=== PATIENT | female | born 1985 | race Caucasian/White ===

== ENCOUNTER 2018-04-24 10:51 | Outpatient (CLI) | payer MEDICAID | END 2018-04-24 13:00 | disposition home or self-care (01) | LOC: OBT 10:51 → L-D 10:53 → OBT 13:00 | DX: O26.613 Liver and biliary tract disorders in pregnancy, third trimester (principal); K83.1 Obstruction of bile duct; O36.8330 Maternal care for abnormalities of the fetal heart rate or rhythm, third trimester, not applicable or unspecified; Z3A.28 28 weeks gestation of pregnancy | CPT/HCPCS: 76818 ==

== ENCOUNTER 2018-04-27 11:29 | Outpatient (CLI) | payer MEDICAID | END 2018-04-27 13:30 | disposition home or self-care (01) | LOC: OBT 11:29 → L-D 11:29 → OBT 13:30 | DX: O36.8330 Maternal care for abnormalities of the fetal heart rate or rhythm, third trimester, not applicable or unspecified (principal); Z3A.28 28 weeks gestation of pregnancy | CPT/HCPCS: 76818 ==

== ENCOUNTER 2018-05-17 19:10 | Outpatient (CLI) | payer MEDICAID | END 2018-05-17 23:20 | disposition home or self-care (01) | LOC: OBT 19:10 → L-D 19:11 → OBT 23:20 | DX: O36.8330 Maternal care for abnormalities of the fetal heart rate or rhythm, third trimester, not applicable or unspecified (principal); Z3A.31 31 weeks gestation of pregnancy | CPT/HCPCS: 76815 ==

== ENCOUNTER 2018-06-07 16:02 | Outpatient (CLI) | payer MEDICAID | END 2018-06-07 17:45 | disposition home or self-care (01) | LOC: OBT 16:02 → L-D 16:03 → OBT 17:45 | DX: O36.8330 Maternal care for abnormalities of the fetal heart rate or rhythm, third trimester, not applicable or unspecified (principal); Z3A.34 34 weeks gestation of pregnancy | CPT/HCPCS: 76818 ==

== ENCOUNTER 2018-06-15 17:07 | Outpatient (CLI) | payer MEDICAID | END 2018-06-15 18:45 | disposition home or self-care (01) | LOC: OBT 17:07 → L-D 17:08 → OBT 18:45 | DX: O36.8330 Maternal care for abnormalities of the fetal heart rate or rhythm, third trimester, not applicable or unspecified (principal); O76 Abnormality in fetal heart rate and rhythm complicating labor and delivery; Z3A.35 35 weeks gestation of pregnancy | CPT/HCPCS: 76818 ==

== ENCOUNTER 2018-06-28 06:27 | Inpatient (IN) | payer MEDICAID ==
[2018-06-28] MEDS: LACTATED RINGER'S 1,000 ML IV ×2 (07:44→17:28)
[2018-06-28] MEDS ORDERED: CARBOPROST 250 MCG INJ IM (08:00)
[2018-06-28] MEDS ORDERED: AMPICILLIN 2 GM/NS (PMX) 100 ML IV (08:00)
[2018-06-28] MEDS ORDERED: METHYLERGONOVINE 0.2 MG INJ IM (08:00)
[2018-06-28] MEDS ORDERED: OXYTOCIN 30 UNITS/LR 500 ML IV (08:00)
[2018-06-28] MEDS ORDERED: IBUPROFEN 600 MG TAB PO (08:00)
[2018-06-28] MEDS ORDERED: MISOPROSTOL 200 MCG TAB PR (08:00)
[2018-06-28 09:04] LABS: ADD MAN DIFF? NO
[2018-06-28 09:09] LABS: BASOPHILS % 0.4 % (0.0-2.0); EOSINOPHILS # 0.1 10^3/ul (0.0-0.5); EOSINOPHILS % 0.7 % (0.0-7.0); HEMATOCRIT 33.1 % (37.0-47.0); LYMPHOCYTES # 1.4 10^3/ul (0.8-2.9); MEAN CORPUSCULAR HGB CONC 33.2 g/dl (32.0-37.0); MEAN CORPUSCULAR VOLUME 90.2 fl (82.0-101.0); MEAN PLATELET VOLUME 11.8 fl (7.4-10.4); MONOCYTE # 0.4 10^3/ul (0.3-0.9); MONOCYTES % 5.7 % (0.0-11.0); NEUTROPHIL # 5.6 10^3/ul (1.6-7.5); NEUTROPHILS % 73.7 % (39.0-77.0); PLATELET COUNT 203 10^3/UL (140-415); RED BLOOD COUNT 3.67 10^6/ul (4.20-5.40); RED CELL DISTRIBUTION WIDTH 12.4 % (11.5-14.5)
[2018-06-28 09:09] LABS: WHITE BLOOD COUNT 7.5 10^3/ul (4.8-10.8)
[2018-06-28 09:33] LABS: INR 0.89; PROTIME 12.1 Sec (11.9-14.9); PT RATIO 0.9
[2018-06-28 09:34] LABS: PARTIAL THROMBOPLASTIN TIME 29.1 Sec (23.0-35.0)
[2018-06-28] MEDS ORDERED: AMPICILLIN 1 GM/NS (PMX) 50 ML IV (12:00)
[2018-06-28 17:13] LABS: RAPID PLASMA REAGIN NONREACTIVE (NR)
[2018-06-28] MEDS: BUTORPHANOL 2 MG INJ IV (23:59)
[2018-06-29] MEDS: LACTATED RINGER'S 1,000 ML IV (01:54)
[2018-06-29] MEDS: ONDANSETRON 4 MG INJ IV (08:23)
[2018-06-29] MEDS: OXYTOCIN 30 UNITS/LR 500 ML IV ×2 (10:05→10:57)
[2018-06-29] MEDS: MINERAL OIL LIGHT 10 ML VIAL TOP (10:20)
[2018-06-29] MEDS: LIDOCAINE 1% (MPF) 30 ML INJ INJ (10:52)
[2018-06-29] MEDS ORDERED: DEXTROSE 5%-LR 1,000 ML IV (11:09)
[2018-06-29] MEDS ORDERED: OXYTOCIN 30 UNITS/LR 500 ML IV (11:30)
[2018-06-29] MEDS ORDERED: DIPHENHYDRAMINE 50 MG INJ IV (11:30)
[2018-06-29] MEDS ORDERED: SENNA/DOCUSATE NA (8.6MG/50MG) TAB PO (11:30)
[2018-06-29] MEDS ORDERED: ZOLPIDEM 5 MG TAB PO (11:30)
[2018-06-29] MEDS ORDERED: ONDANSETRON 4 MG INJ IV (11:30)
[2018-06-29] MEDS ORDERED: ACETAMINOPHEN 325 MG TAB PO (11:30)
[2018-06-29] MEDS ORDERED: CARBOPROST 250 MCG INJ IM (11:30)
[2018-06-29] MEDS ORDERED: METHYLERGONOVINE 0.2 MG INJ IM (11:30)
[2018-06-29] MEDS ORDERED: DIBUCAINE 1% 30 GM OINT TOP (11:30)
[2018-06-29] MEDS ORDERED: MISOPROSTOL 200 MCG TAB PR (11:30)
[2018-06-29] MEDS ORDERED: OXYCODONE/ASPIRIN (4.88/325) TAB PO (11:30)
[2018-06-29] MEDS: OXYTOCIN 30 UNITS/LR 500 ML IVPB (13:10)
[2018-06-29] MEDS: LANOLIN HPA 1 PKT TOP (13:37)
[2018-06-29] MEDS: IBUPROFEN 600 MG TAB PO ×2 (13:37→18:23)
[2018-06-29] MEDS: BENZOCAINE 20% 56 ML SPRAY TOP (13:37)
[2018-06-29] MEDS: WITCH HAZEL/GLYCERIN PAD PR (13:37)
[2018-06-29] MEDS: LACTATED RINGER'S 1,000 ML IV* ×2 (15:35→19:09)
[2018-06-30] MEDS: IBUPROFEN 600 MG TAB PO ×5 (05:46→23:33)
[2018-06-30 09:06] LABS: ADD MAN DIFF? NO
[2018-06-30 09:12] LABS: BASOPHILS % 0.3 % (0.0-2.0); EOSINOPHILS # 0.1 10^3/ul (0.0-0.5); EOSINOPHILS % 0.8 % (0.0-7.0); HEMATOCRIT 30.1 % (37.0-47.0); LYMPHOCYTES % 19.9 % (15.0-51.0); MEAN CORPUSCULAR HEMOGLOBIN 29.9 pg (29.0-33.0); MEAN CORPUSCULAR HGB CONC 33.2 g/dl (32.0-37.0); MEAN CORPUSCULAR VOLUME 90.1 fl (82.0-101.0); MONOCYTE # 0.5 10^3/ul (0.3-0.9); MONOCYTES % 4.6 % (0.0-11.0); NEUTROPHIL # 7.4 10^3/ul (1.6-7.5); NEUTROPHILS % 73.8 % (39.0-77.0); PLATELET COUNT 192 10^3/UL (140-415); RED BLOOD COUNT 3.34 10^6/ul (4.20-5.40); RED CELL DISTRIBUTION WIDTH 12.6 % (11.5-14.5)
[2018-07-01] MEDS: IBUPROFEN 600 MG TAB PO ×2 (05:54→12:56)
[2018-07-01] MEDS ORDERED: DIPHTH/TET/ACEL PERTUSS (ADULT) 0.5 ML VIAL IM* (09:00)
[2018-07-01] MEDS: MEASLES,MUMPS,RUBELLA VACCINE INJ SC* (09:00)
== END 2018-07-01 16:31 | disposition home or self-care (01) | DRG 807 ==
LOC: OBT 06:27 → PP1 06-29 12:26 → L-D 06:27 → OBT 07:37 → L-D 07:32
PROVIDERS: Obstetrics & Gynecology
PROC: 10E0XZZ Delivery of Products of Conception, External Approach (ICD-10-PCS; principal; 2018-06-29)
PROC: 0HQ9XZZ Repair Perineum Skin, External Approach (ICD-10-PCS; 2018-06-29)
PROC: 3E033VJ Introduction of Other Hormone into Peripheral Vein, Percutaneous Approach (ICD-10-PCS; 2018-06-29)
DX: O70.0 First degree perineal laceration during delivery (principal); Z37.0 Single live birth; Z3A.37 37 weeks gestation of pregnancy
CPT/HCPCS: 76815; 76818; 85025; 85610; 85730; 86592; 86900; 86901; 99464

== ENCOUNTER 2018-07-15 08:49 | Emergency (ER) | payer MEDICAID ==
[2018-07-15] MEDS: CEPHALEXIN 500 MG CAP PO (09:48)
[2018-07-15] MEDS: KETOROLAC 60 MG INJ IM (09:49)
== END 2018-07-15 10:14 | disposition home or self-care (01) ==
LOC: FTE 08:49
DX: N61.0 Mastitis without abscess (principal)
CPT/HCPCS: 81025; 96372; 99284-25